=== PATIENT | male | born 1960 | race Two or more races ===

== ENCOUNTER 2025-03-30 19:10 | Inpatient (IN) | payer MEDICARE, MEDICAID, SELFPAY ==
[2025-03-30 19:57] VITALS: BP 230/111; BP 235/118; PULSE 74; RESP 18; TEMP 36.8; O2SAT 95; BMI 28.3
--- NOTE | 2025-03-30 20:01 | PD.EDABDPN ---
ED Abdominal Pain RME/HPI General Chief Complaint: Abdominal Pain Stated complaint: UPPER ABD PAIN Time seen by provider: 03/30/25 20:04 Arrival date/time: 03/30/25 19:10 RME / HPI RME / HPI narrative: See MDM for Dr. Valenzuela's HPI Documentation. Related Data Home Medications ?Medication ?Instructions ?Recorded ?Confirmed No Known Home Medications 03/31/25 03/31/25 Allergies Allergy/AdvReac Type Severity Reaction Status Date / Time No Known Allergies Allergy Verified 03/30/25 19:11 Review of Systems Review of Systems Systems Reviewed: All systems reviewed, normal except as documented Past Medical History Social History SMOKING STATUS: Never smoker ED Exam Narrative Physical exam: See MDM for Dr. Valenzuela's Physical Exam Documentation. Course Quality Measures none Orders Category Date Time Status Admit to Inpatient Status Routine Admission 03/30/25 22:14 Active Patient Condition Routine Admission 03/30/25 22:13 Ordered COVID-19 Screening Questionnaire NOW Care 03/30/25 21:46 Active Decision to Admit X1 Care 03/30/25 21:46 Completed EKG (ED ONLY) *Do not use* NOW Care 03/30/25 20:02 Completed NPO NOW Care 03/30/25 21:45 Active Notify provider NEEDED Care 03/30/25 22:13 Active Saline [Insert IV] NOW Care 03/30/25 20:01 Active Consult to General Surgery Stat Cons 03/30/25 21:37 Ordered Diet NPO (NOW) Diet 03/30/25 21:[address] chest abdomen pelvis wo Stat Exams 03/30/25 20:[address] head/brain wo con Stat Exams 03/30/25 20:03 Completed EKG (ED Only) Stat Exams 03/30/25 20:02 Draft US gall bladder Stat Exams 03/30/25 20:03 Completed XR chest 1V portable Stat Exams 03/30/25 20:02 Completed Alcohol, Blood Medical Stat Lab 03/30/25 20:38 Completed Amylase Stat Lab 03/30/25 20:38 Completed BNP [B-Type Natriuretic Peptide] Stat Lab 03/30/25 20:38 Completed Bilirubin,Direct Stat Lab 03/30/25 20:38 Completed Blood Culture (Lab) Stat Lab 03/30/25 20:38 Received CBC AM DRAW Lab 03/31/25 05:00 Ordered CBC AM DRAW Lab 04/01/25 05:00 Ordered CBC AM DRAW Lab 04/02/25 05:00 Ordered CBC Stat Lab 03/30/25 20:38 Completed CMP [Comprehensive Metabolic Panel] Stat Lab 03/30/25 20:38 Completed CRP [C-Reactive Protein] Stat Lab 03/30/25 20:38 Completed Comprehensive Metabolic Panel AM DRAW Lab 03/31/25 05:00 Ordered Comprehensive Metabolic Panel AM DRAW Lab 04/01/25 05:00 Ordered Comprehensive Metabolic Panel AM DRAW Lab 04/02/25 05:00 Ordered ESR [Sed Rate (ESR)] Stat Lab 03/30/25 20:38 Completed Hemoglobin A1C [Glycohemoglobin w (eAG)] Stat Lab 03/30/25 20:38 Completed Lactate (Lactic Acid) Stat Lab 03/30/25 20:38 Completed Lipase Stat Lab 03/30/25 20:38 Completed Lipid Panel AM DRAW Lab 03/31/25 05:00 Ordered Magnesium Stat Lab 03/30/25 20:38 Completed PT [Prothrombin Time with INR] Stat Lab 03/30/25 20:38 Completed PTT [Partial Thromboplastin Time] Stat Lab 03/30/25 20:38 Completed Procalcitonin Stat Lab 03/30/25 20:38 Completed TSH [Thyroid Stimulating Hormone] Stat Lab 03/30/25 20:38 Completed Troponin I Stat Lab 03/30/25 20:38 Completed UA, C/S IF [Urinalysis, C/S if Indicated] Stat Lab 03/30/25 20:44 Completed Acetaminophen Tab [Tylenol Tab] Med 03/30/25 22:13 Discontinued 650 mg PO Q6H PRN HYDROcodone*/APAP 5/325 [[place] 5/325] Med 03/30/25 22:13 Active 1 tab PO Q6HR PRN HYDROmorphone INJ [Dilaudid Inj] Med 03/30/25 20:02 Discontinued 1 mg IVP X1 ONE Heparin Inj Med 03/31/25 09:00 Discontinued 5,000 unit SC BID Labetalol* IV [Trandate* IV] Med 03/30/25 22:15 Discontinued 20 mg IVP Q10M Ondansetron Inj [Zofran Inj] Med 03/30/25 22:13 Active 4 mg IVP Q6H PRN Ondansetron Inj [Zofran Inj] Med 03/30/25 20:02 Discontinued 4 mg IVP X1 ONE Piper/Tazo 3.375 gm Premix [Zosyn] Med 03/30/25 21:37 Discontinued 3.375 gm in 50 ml IV X1 Piper/Tazo Inj [Zosyn Inj] 4.5 gm Med 03/30/25 22:17 Pending Sodium Chloride 0.9% (Pop) [NS 0.9% mini bag] 100 ml IV Q6HR Ringers Lactated 1000 ml [Lactated Ringers] 1,000 ml Med 03/30/25 22:15 Active IV 75 mls/hr Sodium Chloride 0.9% 1000 ml [Ns] 1,000 ml Med 03/30/25 20:02 Discontinued IV 999 mls/hr cloNIDine HCL [Catapres] Med 03/30/25 20:02 Discontinued 0.3 mg PO X1 ONE Code Status Routine Oth 03/30/25 22:13 Ordered Vital Signs Vital signs: Vital Signs Temperature 98.2 F 03/30/25 19:57 Pulse Rate 74 03/30/25 19:57 Respiratory Rate 18 03/30/25 19:57 Blood Pressure 230/111 H 03/30/25 19:57 Pulse Oximetry (%) 95 03/30/25 19:57 Oxygen Delivery Method Room Air 03/30/25 19:57 Abdominal Pain MDM MDM Narrative MDM Narrative:: This section includes all my notes and documentations, including HPI, PE, and ED course. Clovis Valenzuela MD HPI: 64 y/o male presents with severe epigastric abdominal pain and nausea for several days. No history of abdominal surgery. No medications. No other complaints. ROS: All negative except as documented in HPI. Physical Exam: General:? Alert and oriented.? Appears uncomfortable. High BP noted. Eyes:? Conjunctivae and lids clear.? EOMI.? PERRL. ENT:? No nasal congestion. Neck:? Supple.? Heart:? RRR. Lungs:? No respiratory distress.? Good air movement.? No rhonchi, wheezing, rales.? Abdomen:? Soft with upper quadrant tenderness.? Normal bowel sounds.? No distension.? No rebound or guarding.? Skin:? Warm and dry.? Neuro:? Alert and oriented X 3.? Cranial Nerves II-XII grossly intact.? No peripheral motor deficits. I reviewed all diagnostic test results: My interpretation of the EKG is: Sinus rhythm (77 bpm) with nonspecific ST-T changes. My interpretation of the chest x-ray is: NAD. My review of the Head/Brain CT report is: No acute findings. My review of the Chest/Abdomen/Pelvis CT report is cholecystitis My review of the Gall Bladder US report is cholecystitis. Blood tests and urine tests remarkable for WBC 13.4. At this point, diagnoses include: Acute cholecystitis Hypertensive urgency Treatment here included: IVF Zofran 4 mg IV Dilaudid 1 mg IV Oral clonidine 0.3 mg Some improvement noted. I discussed the case with our general surgeon, Dr. Verduzco. About the presentation and exam and diagnostics and treatments here. And need of further care in the hospital. Recommended admission to hospitalist for surgery. I discussed the case with our hospitalist. About the presentation and exam and diagnostics and treatments here. And need of further care in the hospital. Will accept the patient. Clovis Valenzuela MD Patient data External records reviewed:: [facility] previous records (No prior ED records available for review) Clinical information provided by:: patient Social determinants that could affect healthcare access:: none Patient has the following chronic illnesses:: None reported How is presenting disease/condition affected by chronic disease/condition?: no chronic disease Evaluation data The following diagnostics were reviewed and interpreted by me:: lab results, radiology exam(s) and EKG tracing(s) (My interpretation of the EKG is: Sinus rhythm (77 bpm) with nonspecific ST-T changes. Clovis Valenzuela MD) Lab and/or radiology exams considered but not ordered:: None Interpretation Summary: I reviewed all diagnostic test results: My interpretation of the EKG is: Sinus rhythm (77 bpm) with nonspecific ST-T changes. My interpretation of the chest x-ray is: NAD. My review of the Head/Brain CT report is: No acute findings. My review of the Chest/Abdomen/Pelvis CT report is cholecystitis My review of the Gall Bladder US report is cholecystitis. Blood tests and urine tests remarkable for WBC 13.4. Medications / Prescriptions Medications or Prescriptions considered but not ordered:: None Medication administrations:: Medication Administration History Acetaminophen (Acetaminophen 325 Mg Tablet) 650 mg PO Q6H PRN PRN Reason: PAIN (1-3) OR FEVER > 100.4 Stop: 04/29/25 22:12 Hydrocodone Bitart/Acetaminophen (Hydrocodone/Apap 5/325 Tablet) 1 tab PO Q6HR PRN PRN Reason: PAIN SCALE 4-6 (Moderate Stop: 04/04/25 22:12 Last Admin: 03/31/25 00:05 Dose: 1 tab Documented By: GD Heparin Sodium (Porcine) (Heparin Sod Inj 5000 Unit/Ml Vial) 5,000 unit SC BID COUNT INCLUDES THE [facility] Stop: 04/14/25 20:59 Lactated Ringer's (Lactated Ringers) 1,000 mls @ 75 mls/hr IV .[id number] JEREMIAH Stop: 04/29/25 22:14 Last Admin: 03/30/25 23:02 Dose: 75 mls/hr Documented By: BR Piperacillin Sod/Tazobactam (Sod 4.5 gm/ Sodium Chloride) 100 mls @ 200 mls/hr IV Q6HR JEREMIAH; Protocol Stop: 04/06/25 22:16 Labetalol HCl (Labetalol Inj 5 Mg/Ml Vial 4 Ml) 20 mg IVP Q10M PRN PRN Reason: SBP>180 or DBP>100and pulse>65 Stop: 04/29/25 22:35 Ondansetron HCl (Ondansetron Inj 2 Mg/Ml Inj 2 Ml) 4 mg IVP Q6H PRN; Protocol PRN Reason: NAUSEA OR VOMITING Stop: 04/29/25 22:12 Discontinued Medications Acetaminophen (Acetaminophen 325 Mg Tablet) 650 mg PO Q6H PRN PRN Reason: PAIN OR FEVER > 100.4 Stop: 04/29/25 22:12 Clonidine (Clonidine Hcl 0.1 Mg Tablet) 0.3 mg PO X1 ONE Stop: 03/30/25 20:03 Last Admin: 03/30/25 20:42 Dose: 0.3 mg Documented By: CVL Heparin Sodium (Porcine) (Heparin Sod Inj 5000 Unit/Ml Vial) 5,000 unit SC BID COUNT INCLUDES THE [facility] Stop: 04/14/25 08:59 Hydromorphone HCl (Hydromorphone Inj 2 Mg/Ml Vial) 1 mg IVP X1 ONE Stop: 03/30/25 20:03 Last Admin: 03/30/25 21:09 Dose: 1 mg Documented By: MISSY Sodium Chloride (Ns) 1,000 mls @ 999 mls/hr IV .Q1H1M ONE Stop: 03/30/25 21:02 Last Infusion: 03/30/25 22:48 Dose: Infused Documented By: Admin: 03/30/25 21:08 Dose: 999 mls/hr Documented By: MISSY Piperacillin/Tazobactam/Dextrose (Zosyn) 3.375 gm in 50 mls @ 100 mls/hr IV X1 ONE; Protocol Stop: 03/30/25 22:06 Last Infusion: 03/30/25 22:48 Dose: Infused Documented By: Admin: 03/30/25 21:46 Dose: 100 mls/hr Documented By: SCARLET Labetalol HCl (Labetalol Inj 5 Mg/Ml Vial 4 Ml) 20 mg IVP Q10M JEREMIAH Stop: 04/29/25 22:14 Ondansetron HCl (Ondansetron Inj 2 Mg/Ml Inj 2 Ml) 4 mg IVP X1 ONE; Protocol Stop: 03/30/25 20:03 Last Admin: 03/30/25 21:09 Dose: 4 mg Documented By: MISSY Treatment here from me included: IVF Zofran 4 mg IV Dilaudid 1 mg IV Oral clonidine 0.3 mg Consultations Consultation(s) initiated? (list below): Yes Consultation #1 (Physician, Specialty, Details): I discussed the case with our general surgeon, Dr. Verduzco. About the presentation and exam and diagnostics and treatments here. And need of further care in the hospital. Recommended admission to hospitalist for surgery. Time: 21:35 Consultation #2 (Physician, Specialty, Details): I discussed the case with our hospitalist. About the presentation and exam and diagnostics and treatments here. And need of further care in the hospital. Will accept the patient. Time: 21:40 Diagnosis Differential diagnosis abdominal pain: acute appendicitis, calculus of kidney, constipation, diverticulitis, endometriosis, gastroenteritis, pancreatitis, small bowel obstruction and other (Hypertensive urgency, biliary colic) Most likely diagnosis given after review of the tests above:: Acute cholecystitis Hypertensive urgency Admission Indicated Admission indicated?: indicated Explain why admission is indicated or not indicated:: Acute cholecystitis Hypertensive urgency Admission Request Was there a request for admission?: Yes Admission Attestation Admission request attestation: Discussed case with Hospitalist service regarding admission. Discussed patients ED course, exam findings, labs, and radiology results. Agreed to accept the patient for admission. Disposition Plan Disposition Plan: Admit Discharge Plan Plan Patient Disposition: Admit Acute Care w/in Hospital Problem List Clinical Impression: Acute cholecystitis, Hypertensive urgency
--- NOTE | 2025-03-30 20:02 | XR_ITS ---
EXAMINATION: PA chest single view TECHNIQUE: Upright PA chest single view Date and time: March 22, 2025, 2003 hours INDICATIONS: Shortness of breath weakness today. FINDINGS: Normal heart size Lungs are clear. Osseous rectors are intact IMPRESSION: No active disease
--- NOTE | 2025-03-30 20:02 | EKG_ITS ---
[facility] Test Date: 2025-03-30 Pat Name: HENRI GRIJALVA Department: Room: - Gender: Male Rn Pool: : [id number] Requested By: Clovis Scott Order Number: [id number] Reading MD: Clovis Scott Measurements Intervals [place] Rate: 77 P: 33 TX: 143 QRS: -9 QRSD: 86 T: 46 QT: 377 QTc: 428 Interpretive Statements SINUS RHYTHM MINIMAL VOLTAGE CRITERIA FOR LVH, CONSIDER NORMAL VARIANT [MEETS CRITERIA IN ONE OF: R(aVL), S(V1), R(V5), R(V5/V6)+S(V1)] No previous ECG available for comparison /store/S0/[id number]/ecg/[id number].pdf
--- NOTE | 2025-03-30 20:03 | XR_ITS ---
Examination: CT chest, without intravenous contrast. CT abdomen, without intravenous contrast. CT pelvis, without intravenous contrast. 2-D sagittal and coronal reconstructions. 3-D reconstructions. Date and time of exam: March 30, 2025, 2021 hours INDICATIONS: Epigastric pain nausea vomiting chest and abdominal pain today CTDI vol (mgy) 13.7 DLP (MGycm) 1057 Technique: Multiple CT images, 3.0 mm slice thickness, obtained chest, abdomen, pelvis, with the high-resolution 64 slice scanner.. Sagittal and coronal 2-D reconstructions are obtained. 3-D reconstructions Low dose protocols were performed. One or more of the following dose reduction techniques were used; automated exposure control, adjustment of the mA and/or KV according to patient size, use of iterative reconstruction technique. Findings: No thoracic aortic aneurysm dilatation Pulmonary artery segments are not enlarged. No mediastinal lymphadenopathy. No pneumonia or pulmonary edema or pleural disease No liver or splenic lesion Gallstones Gallbladder wall appears mildly thickened No pancreatic or adrenal mass Benign left renal cysts No renal or ureteral calculi, no hydronephrosis Aorta normal size No bowel obstruction Normal appendix Colonic diverticulosis, no diverticulitis Urinary bladder intact Moderate prostatomegaly Osseous structures intact IMPRESSION: No mediastinal lymphadenopathy, No pneumonia or pulmonary edema or pleural disease Recommend hepatobiliary sonography follow-up to exclude calculus cholecystitis No renal or ureteral calculi, no hydronephrosis Normal appendix No bowel obstruction diverticulitis or free air
--- NOTE | 2025-03-30 20:03 | XR_ITS ---
Examination: Abdomen sonogram, Limited Date and time of exam: March 30, 2025, 2025 hours INDICATIONS: Epigastric pain and vomiting beginning 3 weeks ago. Technique: Real-time diggs scale transabdominal sonographic images of the upper abdomen obtained. Findings: Minimal gallbladder sludge Multiple gallstones Gallbladder wall borderline thickened 0.4 cm Common bile duct enlarged 0.7 cm no stones Pancreas obscured by bowel gas Liver 13.8 cm fatty infiltration lobular contour no focal liver lesions Normal hepatopetal portal venous flow Patent IVC IMPRESSION: Cholelithiasis, suspicious for cholecystitis Enlarged common bile duct 0.7 cm Consider MRCP follow-up to exclude acute cholecystitis and exclude stones in the common bile duct
--- NOTE | 2025-03-30 20:03 | XR_ITS ---
Examination: CT brain head without contrast. 2-D sagittal coronal reconstructions Date and time of exam: March 30, 2025, 2020 hours INDICATIONS: High blood pressure headache dizziness today CTDI: vol (mGy): 49.6 DLP: (mGycm): 971 Technique: Multiple CT axial sections of the brain have been obtained, 5 mm slice thickness. Contrast has not been administered. 2-D sagittal, coronal reconstructions have been obtained Low dose protocols were performed. One or more of the following dose reduction techniques were used; automated exposure control, adjustment of the mA and/or KV according to patient size, use of iterative reconstruction technique. Findings: No significant ventricular enlargement. Intra-axial or extra-axial hemorrhage density is not seen. No mass effect or midline shift Basal cisterns are not remarkable. Fourth ventricle is midline. Cranial vault intact. Impression: Negative for acute hemorrhage, mass effect or midline shift Advise clinical correlation and follow-up accordingly
[2025-03-30 20:42] VITALS: BP 230/111; PULSE 74
[2025-03-30 20:49] LABS: Collection Type, Urine Clean Catch
[2025-03-30 20:51] LABS: Lactate (Lactic Acid) 1.4 mMol/L (0.4-2.0)
[2025-03-30 21:05] LABS: Sed Rate (ESR) 15 mm/hr (0-20)
[2025-03-30 21:07] VITALS: BP 227/109; PULSE 74; RESP 19; O2SAT 97
[2025-03-30 21:07] LABS: Glucose Estimated Average 114 mg/dL (80-131); Hemoglobin A1C 5.6 % Hgb (4.8-6.0)
[2025-03-30] MEDS: SODIUM CHLORIDE 0.9% 1000 ML 1,000 ML 999 ML IV (21:08)
[2025-03-30] MEDS: ONDANSETRON INJ 2 MG/ML INJ 2 ML 4 MG IVP (21:09)
[2025-03-30] MEDS: HYDROmorphone INJ 2 MG/ML VIAL 1 MG IVP (21:09)
[2025-03-30 21:12] LABS: INR 1.0 (0.9-1.3); Partial Thromboplastin Time 27.3 Seconds (22.0-36.0); Prothrombin Time 10.4 Seconds (9.0-12.2)
[2025-03-30 21:16] LABS: Bilirubin,Urine Negative (Negative); Blood,Urine 1+ (Negative); Clarity,Urine Clear (Clear/Hazy); Color,Urine Colorless (Lt Yel-Yel); Culture Indicated,Urine Not Indicated; Glucose, Urine Negative (Negative); Ketones,Urine Negative (Negative); Leukocyte Esterase,Urine Negative (Negative); Nitrite,Urine Negative (Negative); PH,Urine 7.5 (5.0-7.0); Protein,Urine Trace (Neg - Trace); RBC,Urine 12 /hpf (0-3); Specific Gravity,Urine 1.013 (1.001-1.035); Squamous Epithelial Cell,Urine < 1 /hpf (0-5); Urobilinogen,Urine Negative mg/dL (0.0-1.0); WBC,Urine 4 /hpf (0-5)
[2025-03-30 21:18] LABS: B-Type Natriuretic Peptide 20 pg/mL (0-100)
[2025-03-30 21:20] LABS: Basophils # (Auto) 0.1 Thou/mm3 (0.0-0.2); Basophils % (Auto) 0 % (0-2.5); Eosinophils # (Auto) 0.2 Thou/mm3 (0.0-0.5); Eosinophils % (Auto) 1 % (0-10); Hematocrit 42.3 % (41.0-53.0); Hemoglobin 14.5 g/dL (13.5-16.0); Immature Granulocytes Auto 0.05 Thou/mm3 (0.00-0.00); Lymphocytes # (Auto) 1.5 Thou/mm3 (1.0-4.8); Lymphocytes % (Auto) 11 % (10-50); Mean Corpuscular HGB Conc 34.3 g/dl (31.0-37.0); Mean Corpuscular Hemoglobin 30.0 pg (25.0-35.0); Mean Corpuscular Volume 87 fL (80-100); Monocytes # (Auto) 1.1 Thou/mm3 (0.0-0.8); Monocytes % (Auto) 8 % (0-12); Neutrophils # (Auto) 10.6 Thou/mm3 (1.8-7.7); Neutrophils % (Auto) 79 % (37-80); Nucleated Red Blood Cell # 0.00 Thou/mm3 (0.00-0.00); Nucleated Red Blood Cell % 0 /100 WBC (0); Platelet Count 188 Thou/mm3 (140-440); RDW Standard Deviation 38.3 fL (35.1-43.9); Red Blood Count 4.84 Miln/mm3 (4.50-5.90); White Blood Count 13.4 Thou/mm3 (3.8-10.6)
[2025-03-30 21:22] VITALS: BP 163/86; PULSE 72; RESP 18; TEMP 36.8; O2SAT 97
[2025-03-30 21:28] VITALS: BP 163/86; PULSE 66; RESP 14; O2SAT 96
[2025-03-30 21:30] LABS: Alanine Aminotransferase 15 U/L (10-49); Albumin, Serum 4.7 gm/dL (3.4-4.8); Albumin/Globulin Ratio 1.7 (1.2-2.2); Alcohol, Blood Medical < 3.0 mg/dL (0-10.0); Alkaline Phosphatase 98 U/L (46-116); Amylase 86 U/L (30-118); Anion Gap 11 (7-16); Aspartate Amino Transferase 20 U/L (0-34); BUN/Creatinine Ratio 9 Ratio (12-20); Bilirubin,Direct 0.2 mg/dL (0.0-0.3); Bilirubin,Total 0.5 mg/dL (0.3-1.2); Blood Urea Nitrogen 10 mg/dL (9-23); C-Reactive Protein 1.3 mg/dL (0.0-0.9); Calcium 9.5 mg/dL (8.3-10.6); Calcium (Corrected) 9.5 mg/dL (8.5-10.1); Carbon Dioxide 24.1 mMol/L (20.0-31.0); Chloride 106 mMol/L (98-107); Creatinine (Component) 1.1 mg/dL (0.6-1.3); Estimated Creatinine Clearance 61.2 mL/min (>60); Globulin 2.8 gm/dL (2.3-3.5); Glucose 143 mg/dL (74-106); Lipase 33 U/L (12-53); Magnesium 2.2 mg/dL (1.6-2.6); Osmolality,Calculated 282 (275-295); Potassium 3.8 mMol/L (3.4-5.1); Procalcitonin 0.08 ng/ml (0.0-0.49); Sodium 141 mMol/L (136-145); Thyroid Stimulating Hormone 0.97 uIU/mL (0.55-4.78); Total Protein 7.5 gm/dL (5.7-8.2); Troponin I < 0.002 ng/mL (0.0-0.045); eGFR > 60 See Note
[2025-03-30] MEDS: PIPER/TAZO 3.375 GM PREMIX 3.375 GM/50 ML BAG IV (21:46)
[2025-03-30 22:00] VITALS: BP 146/85
--- NOTE | 2025-03-30 22:20 | PD.RESHP ---
Documentation for date of: 03/30/25 [facility] History of Present Illness History of present illness: 64-year-old Belarusian-speaking male with no noted past medical history who presents to the ED for abdominal pain. Daughter present at bedside to help provide additional information. States that pain started on , was right-sided, and associated with nausea and non-bloody and non-bilious vomiting. No fever or chills. Per daughter, he has been experiencing abdominal pain after eating greasy meals for some time but did not seek medical attention until now. Since experiencing these episodes he has been trying to watch what he eats. Additionally, prior to coming in he was experiencing headaches and a nosebleed, but no blurry vision. He has no history of hypertension and does not take any medications for it. Does state that he is under stress as his is currently admitted and being worked up for a stroke. In the ED, blood pressure noted to be 230/111, afebrile, and on room air. Labs significant for mild leukocytosis 13.4 and T. bili and alk phos within normal limits. CT A/P showed gallstones and a mildly thickened gallbladder. Gallbladder ultrasound shows gallstones and suspicion for cholecystitis with CBD of 0.[address] head negative. General surgery consulted and plans to perform cholecystectomy following morning. Given clonidine 0.3 mg x 1, 1 L LR bolus, Zofran, hydromorphone 1 mg x 1, and Zosyn. Admitted for management of acute cholecystitis and hypertensive emergency. PMHx: None Medications: None SHx: Denies smoking, alcohol or illicit drug use PSHx: None Allergies: None Review of Systems Review of Systems Systems Reviewed: All systems reviewed, normal except as documented Exam Vital Signs Temp Pulse Resp BP Pulse Ox O2 Del Method 98.3 F 66 14 146/85 H 96 Room Air 03/30/25 21:22 03/30/25 21:28 03/30/25 21:28 03/30/25 22:00 03/30/25 21:03/30/25 21:28 Narrative Exam General: AOx3, no acute distress, able to speak full sentences HEENT: NC/AT, mucous membranes moist, bilateral sclera anicteric Cardiovascular: regular rate and rhythm, S1/S2 present, no murmurs appreciated Pulmonary: clear to auscultation bilaterally, no rales/rhonchi/wheezes Abdominal: mild tenderness to palpation, negative Skinner, soft, non-distended, no rebound/guarding, normal bowel sounds present Musculoskeletal: normal ROM, no peripheral edema Skin: warm and dry, intact, no rashes Neuro: CN II-XII intact, no focal deficits Results: Labs 03/31/25 05:53 03/31/25 05:53 Labs: Short CBC 03/30/25 Range/Units 20:38 WBC 13.4 H (3.8-10.6) Thou/mm3 Hgb 14.5 (13.5-16.0) g/dL Hct 42.3 (41.0-53.0) % Plt Count 188 (140-440) Thou/mm3 BMP 03/30/25 20:38 Sodium 141 Potassium 3.8 Chloride 106 Carbon Dioxide 24.1 BUN 10 Creatinine 1.1 Glucose 143 H Calcium 9.5 Cardiac Enzymes 03/30/25 Range/Units 20:38 Troponin I < 0.002 (0.0-0.045) ng/mL Liver Function 03/30/25 Range/Units 20:38 Total Bilirubin 0.5 (0.3-1.2) mg/dL Direct Bilirubin 0.2 (0.0-0.3) mg/dL AST 20 (0-34) U/L ALT 15 (10-49) U/L Alkaline Phosphatase 98 (46-116) U/L Albumin 4.7 (3.4-4.8) gm/dL Urine 03/30/25 Range/Units 20:44 Urine Color Colorless A (Lt Yel-Yel) Urine Clarity Clear (Clear/Hazy) Urine pH 7.5 H (5.0-7.0) Ur Specific [place] 1.013 (1.001-1.035) Urine Protein Trace (Neg - Trace) Urine Glucose (UA) Negative (Negative) Quality Measures Quality Measures VTE prophylaxis Advance care planning discussed with:: patient and child Medications Home Medications and Allergies Allergies Allergy/AdvReac Type Severity Reaction Status Date / Time No Known Allergies Allergy Verified 03/30/25 19:11 Visit Medications Acetaminophen (Acetaminophen 325 Mg Tablet) 650 mg PO Q6H PRN PRN Reason: PAIN OR FEVER > 100.4 Stop: 04/29/25 22:12 Hydrocodone Bitart/Acetaminophen (Hydrocodone/Apap 5/325 Tablet) 1 tab PO Q6HR PRN PRN Reason: PAIN SCALE 4-6 (Moderate Stop: 04/04/25 22:12 Lactated Ringer's (Lactated Ringers) 1,000 mls @ 75 mls/hr IV .[id number] JEREMIAH Stop: 04/29/25 22:14 Ondansetron HCl (Ondansetron Inj 2 Mg/Ml Inj 2 Ml) 4 mg IVP Q6H PRN; Protocol PRN Reason: NAUSEA OR VOMITING Stop: 04/29/25 22:12 Discontinued Medications Clonidine (Clonidine Hcl 0.1 Mg Tablet) 0.3 mg PO X1 ONE Stop: 03/30/25 20:03 Last Admin: 03/30/25 20:42 Dose: 0.3 mg Hydromorphone HCl (Hydromorphone Inj 2 Mg/Ml Vial) 1 mg IVP X1 ONE Stop: 03/30/25 20:03 Last Admin: 03/30/25 21:09 Dose: 1 mg Sodium Chloride (Ns) 1,000 mls @ 999 mls/hr IV .Q1H1M ONE Stop: 03/30/25 21:02 Last Admin: 03/30/25 21:08 Dose: 999 mls/hr Piperacillin/Tazobactam/Dextrose (Zosyn) 3.375 gm in 50 mls @ 100 mls/hr IV X1 ONE; Protocol Stop: 03/30/25 22:06 Last Admin: 03/30/25 21:46 Dose: 100 mls/hr Ondansetron HCl (Ondansetron Inj 2 Mg/Ml Inj 2 Ml) 4 mg IVP X1 ONE; Protocol Stop: 03/30/25 20:03 Last Admin: 03/30/25 21:09 Dose: 4 mg Assessment & Plan Plan 64-year-old Belarusian-speaking male with no noted past medical history who is admitted for management of acute cholecystitis and hypertensive emergency. #Acute cholecystitis Presents with acute onset abdominal pain x 1 day with associated nausea and nonbilious and nonbloody emesis. No fevers, slight leukocytosis of 13.4. T. bili and alk phos within normal limits. Gallbladder ultrasound shows cholelithiasis with slight gallbladder wall thickening and CBD of 0.7 cm but no stones seen. ? General Surgery on board, pending cholecystectomy ? N.p.o. ? LR at 75 cc/h ? Stephaniesytony (03/30-) #Hypertensive emergency No history of hypertension and not on any home medications. ? Labetalol as needed ? Recommend to reduce MAP gradually by 10-20% in first hour and 5-15% over next 23 hours ? Or target blood pressure of <180/<120 mmHg for first hour and <160/<110 mmHg for next 23 hours Hospital management: Disposition: Pending cholecystectomy, IV antibiotics Fluids: LR at 75 cc/h Diet: N.p.o. except for medications Lines: PIV DVT prophylaxis: Heparin SC BID CODE STATUS: full code ----- Plan discussed with attending physician Dr. Octavio Red MD PGY-2 Internal Medicine Attending Provider Attestation/Addendum After examination of the patient and review of the clinical data I feel that this patient needs admission to the hospital for further treatment/evaluation. Plan of care discussed with patient and is in agreement. I Ankita Cunningham MD, attest that I was physically present for pearce portions of evaluation, and examined patient, labs and imagings and plan of care were discussed with IM residents team, and I agree with the findings and plans documented above.
[2025-03-30] MEDS: RINGERS LACTATED 1000 ML 1,000 ML 75 ML IV (23:02)
[2025-03-30 23:51] VITALS: BMI 28.3
[2025-03-31] VITALS (8 sets, daily range): BP systolic 118–161; BP diastolic 71–94; PULSE 62–101; RESP 13–18; TEMP 36.2–36.8; O2SAT 95–98
[2025-03-31] MEDS: HYDROcodone/APAP 5/325 TABLET 1 TAB PO ×2 (00:05→10:22)
[2025-03-31 06:40] LABS: Basophils # (Auto) 0.0 Thou/mm3 (0.0-0.2); Basophils % (Auto) 0 % (0-2.5); Eosinophils # (Auto) 0.1 Thou/mm3 (0.0-0.5); Eosinophils % (Auto) 1 % (0-10); Hematocrit 37.3 % (41.0-53.0); Hemoglobin 12.8 g/dL (13.5-16.0); Immature Granulocytes Auto 0.03 Thou/mm3 (0.00-0.00); Lymphocytes # (Auto) 1.4 Thou/mm3 (1.0-4.8); Lymphocytes % (Auto) 15 % (10-50); Mean Corpuscular HGB Conc 34.3 g/dl (31.0-37.0); Mean Corpuscular Hemoglobin 30.0 pg (25.0-35.0); Mean Corpuscular Volume 88 fL (80-100); Monocytes # (Auto) 1.1 Thou/mm3 (0.0-0.8); Monocytes % (Auto) 12 % (0-12); Neutrophils # (Auto) 6.5 Thou/mm3 (1.8-7.7); Neutrophils % (Auto) 71 % (37-80); Nucleated Red Blood Cell # 0.00 Thou/mm3 (0.00-0.00); Nucleated Red Blood Cell % 0 /100 WBC (0); Platelet Count 160 Thou/mm3 (140-440); RDW Standard Deviation 38.1 fL (35.1-43.9); Red Blood Count 4.26 Miln/mm3 (4.50-5.90); White Blood Count 9.2 Thou/mm3 (3.8-10.6)
[2025-03-31 06:56] LABS: Alanine Aminotransferase 135 U/L (10-49); Albumin, Serum 4.1 gm/dL (3.4-4.8); Albumin/Globulin Ratio 1.7 (1.2-2.2); Alkaline Phosphatase 111 U/L (46-116); Anion Gap 9 (7-16); Aspartate Amino Transferase 161 U/L (0-34); BUN/Creatinine Ratio 10 Ratio (12-20); Bilirubin,Total 0.9 mg/dL (0.3-1.2); Blood Urea Nitrogen 10 mg/dL (9-23); Calcium 8.4 mg/dL (8.3-10.6); Calcium (Corrected) 8.4 mg/dL (8.5-10.1); Carbon Dioxide 26.9 mMol/L (20.0-31.0); Cardiac Risk Estimate 3.2 RATIO (4.0-6.7); Chloride 105 mMol/L (98-107); Cholesterol 120 mg/dL (132-200); Creatinine (Component) 1.0 mg/dL (0.6-1.3); Estimated Creatinine Clearance 67.3 mL/min (>60); Globulin 2.4 gm/dL (2.3-3.5); Glucose 125 mg/dL (74-106); HDL Cholesterol 37 mg/dL (40-60); LDL Cholesterol,Calculated 57 mg/dL (0-130); Osmolality,Calculated 281 (275-295); Potassium 3.8 mMol/L (3.4-5.1); Sodium 141 mMol/L (136-145); Total Protein 6.5 gm/dL (5.7-8.2); Triglycerides 129 mg/dL (30-150); eGFR > 60 See Note
--- NOTE | 2025-03-31 07:41 | PD.RESPRO ---
Documentation for date of: 03/31/25 Exam Vital Signs Temp Pulse Resp BP Pulse Ox O2 Del Method 97.1 F 67 18 143/78 H 98 Room Air 03/31/25 04:00 03/31/25 04:00 03/31/25 04:00 03/31/25 04:00 03/31/25 04:00 03/31/25 04:00 Objective Labs 03/31/25 05:53 03/31/25 05:53 Labs: Laboratory Results - last 24 hr 03/30/25 03/30/25 03/31/25 20:38 20:44 05:53 WBC 13.4 H 9.2 RBC 4.84 4.26 L Hgb 14.5 12.8 L Hct 42.3 37.3 L MCV 87 88 MCH 30.0 30.0 MCHC 34.3 34.3 RDW Std Deviation 38.3 38.1 Plt Count 188 160 Neut % (Auto) 79 71 Lymph % (Auto) 11 15 Hayes % (Auto) 8 12 Eos % (Auto) 1 1 Baso % (Auto) 0 0 Neut # (Auto) 10.6 H 6.5 Lymph # (Auto) 1.5 1.4 Hayes # (Auto) 1.1 H 1.1 H Eos # (Auto) 0.2 0.1 Baso # (Auto) 0.1 0.0 Immature Gran # (Auto) 0.05 H 0.03 H Absolute Nucleated RBC 0.00 0.00 Immature Gran % 0 0 Nucleated RBC % 0 0 ESR 15 PT 10.4 INR 1.0 APTT 27.3 Sodium 141 141 Potassium 3.8 3.8 Chloride 106 105 Carbon Dioxide 24.1 26.9 Anion Gap 11 9 BUN 10 10 Creatinine 1.1 1.0 Estim Creat Clear Calc 61.2 67.3 eGFR > 60 > 60 BUN/Creatinine Ratio 9 L 10 L Glucose [address] Glu mg/dL 114 Hemoglobin A1c 5.6 Calculated Osmolality 282 281 Lactic Acid 1.4 Calcium 9.5 8.4 Corrected Calcium 9.5 8.4 L Magnesium 2.2 Total Bilirubin 0.5 0.9 Direct Bilirubin 0.2 AST 20 161 H ALT 15 135 H Alkaline Phosphatase 98 111 Troponin I < 0.002 C-Reactive Prot, Quant 1.3 H B-Natriuretic Peptide 20 Total Protein 7.5 6.5 Albumin 4.7 4.1 D Globulin 2.8 2.4 Albumin/Globulin Ratio 1.7 1.7 Triglycerides 129 Cholesterol 120 L LDL Cholesterol, Calc 57 HDL Cholesterol 37 L Cholesterol/HDL Ratio 3.2 L Amylase 86 Lipase 33 Procalcitonin 0.08 TSH 0.97 Ur Collection Type Clean Catch Urine Color Colorless A Urine Clarity Clear Urine pH 7.5 H Ur Specific [place] 1.013 Urine Protein Trace Urine Glucose (UA) Negative Urine Ketones Negative Urine Blood 1+ A Urine Nitrite Negative Urine Bilirubin Negative Urine Urobilinogen (Auto) Negative Ur Leukocyte Esterase Negative Urine RBC 12 H Urine WBC 4 Ur Squamous Epith Cells < 1 Urine Bacteria None Ur Culture Indicated? Not Indicated Ethyl Alcohol < 3.0 Quality Measures Quality Measures none Assessment & Plan Assessment Current Active Medications: Generic Name Dose Route Start Last Admin Trade Name Freq PRN Reason Stop Dose Admin Acetaminophen 650 mg 03/30/25 23:06 Acetaminophen 325 Mg Tablet PO 04/29/25 22:12 Q6H PRN PAIN (1-3) OR FEVER > 100.4 Hydrocodone Bitart/Acetaminophen 1 tab 03/30/25 22:13 03/31/25 00:05 Hydrocodone/Apap 5/325 Tablet PO 04/04/25 22:12 1 tab Q6HR PRN Administration PAIN SCALE 4-6 (Moderate Heparin Sodium (Porcine) 5,000 unit 03/31/25 21:00 Heparin Sod Inj 5000 Unit/Ml Vial SC 04/14/25 20:59 BID JEREMIAH Lactated Ringer's 1,000 mls @ 75 mls/hr 03/30/25 22:15 03/30/25 23:02 Lactated Ringers IV 04/29/25 22:14 75 mls/hr .[id number] JEREMIAH Administration Piperacillin Sod/Tazobactam 100 mls @ 200 mls/hr 03/31/25 06:15 Sod 4.5 gm/ Sodium Chloride IV 04/06/25 22:16 Q6HR JEREMIAH Protocol Potassium Chloride 10 meq in 100 mls @ 100 mls/hr 03/31/25 07:40 Kcl Ivpb IV 03/31/25 09:39 Q1H JEREMIAH Labetalol HCl 20 mg 03/30/25 22:33 Labetalol Inj 5 Mg/Ml Vial 4 Ml IVP 04/29/25 22:35 Q10M PRN SBP>180 or DBP>100and pulse>65 Ondansetron HCl 4 mg 03/30/25 22:13 Ondansetron Inj 2 Mg/Ml Inj 2 Ml IVP 04/29/25 22:12 Q6H PRN NAUSEA OR VOMITING Protocol
[2025-03-31] MEDS: CEFOXITIN IV ×2 (08:05→11:28)
[2025-03-31] MEDS: SODIUM CHLORIDE 0.9% IV ×2 (08:05→11:28)
[2025-03-31] MEDS: POTASSIUM CHL 10 mEq IVPB 10 MEQ/100 ML BAG 100 MEQ IV ×2 (10:22→11:27)
--- NOTE | 2025-03-31 10:28 | PD.SURCONS ---
HPI Consult details History of present illness: 64M presenting with abdominal pain and nausea. Patient reports he has had similar episodes of pain in the past related to cholelithiasis and had been referred for elective surgery, however last night after eating a sandwich he noted severe epigastric pain which persisted prompting him to visit ER. The pain did sergei for some time but as of this morning he feels that it is returned and he does have nausea. He denies any fever or diarrhea PMH: Denies but has had hypertension since admission PSH: None Meds: None Allergies: NKDA Social history: Non-smoker, no alcohol use Review of Systems Review of Systems ROS Unobtainable: All systems reviewed & no additional complaints except as documented Meds Home Medications and Allergies Home Medications ?Medication ?Instructions ?Recorded ?Confirmed ?Type No Known Home Medications 03/31/25 03/31/25 History Allergies Allergy/AdvReac Type Severity Reaction Status Date / Time No Known Allergies Allergy Verified 03/30/25 19:11 Exam Vital Signs Temp Pulse Resp BP Pulse Ox O2 Del Method 97.6 F 62 18 149/83 H 98 Room Air 03/31/25 08:00 03/31/25 08:00 03/31/25 08:00 03/31/25 08:00 03/31/25 08:00 03/31/25 08:00 Constitutional Constitutional: no acute distress Routine Respiratory Exam Respiratory: Present no resp distress Routine Abdominal Exam Abdominal: Present soft and tenderness (mild epigastric tenderness); Absent distended, rebound or guarding Results Results: Laboratory Laboratory results: results reviewed Results: Imaging CT scan - abdomen: report reviewed US - abdomen: report reviewed Assessment & Plan Plan 64M with no known PMH presenting with signs and symptoms of acute cholecystitis. I explained benefits/risks of surgery including need for conversion to open, bleeding, infection, injury to nearby structures requiring further procedures or major biliary reconstruction at another hospital, as well as postoperative hernia and diarrhea. All questions were answered and patient is agreeable to proceeding OR today for laparoscopic cholecystectomy, possible open
--- NOTE | 2025-03-31 10:39 | EKG_ITS ---
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
[2025-03-31] MEDS: RINGERS LACTATED 1000 ML 1,000 ML 75 ML IV (11:26)
--- NOTE | 2025-03-31 13:40 | PC.SS ---
Annika Lopez is a 64 year-old male admitted to [place] for Acute Brittney. SS conducted bedside contact with the patient to complete initial assessment and to discuss discharge planning. Role and reason explained. Patient confirmed demographic information. Patient identifies his Queenie Cohen [phone] as his surrogate decision maker. Pt states he is able to complete all ADL?s independent. Pt does not possesses any DME. Pts PCP is Sabrina. Pharmacy of choice is [facility]. Discharge options discussed and the pt wishes to return home.? Pt will provide transport. 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 DC Plan: Home Contact: Queenie Address: Confirmed on face sheet PCP: Sabrina
--- NOTE | 2025-03-31 16:09 | ESOP_ITS ---
Date of Procedure 03/31/25 Pre Op Diagnosis Acute cholecystitis Post Op Diagnosis Same Procedure Laparoscopic cholecystectomy Findings Significantly inflamed gallbladder with thick rind and numerous stones Procedure Description After discussion of risks and benefits, patient was brought to the operating room, SCDs were placed and general anesthesia was induced. He had already received preoperative antibiotics and was prepped and draped in the usual sterile fashion. After timeout a supraumbilical incision was made with a #15 blade and the skin was elevated with towel clamps. A Veress needle was placed through the incision and proper positioning was confirmed with a drop test at which point the abdomen was insufflated to 15 mmHg. The Veress needle was then exchanged for a 5 mm camera using a Visiport technique. There were no signs of injury from the point of entry. 3 additional ports were placed under direct vision, one 12 mm at the epigastrium, one 5 mm right subcostal and one 5 mm right anterior axillary line. Patient was placed in reverse Trendelenburg. The gallbladder was noted to be very tense and edematous so it was first aspirated with return of approximately 30 cc of dark bile. It was still fairly difficult to grasp but the fundus was grasped and retracted cephalad and the infundibulum was grasped and retracted laterally. The lower third of the gallbladder was removed from the gallbladder bed using electrocautery and using blunt dissection, the hepatocystic triangle was cleared of all fat and fibrous tissue. During this process there was some bleeding from an accessory artery overlying the thick rind that was covering the gallbladder, this artery was clipped and transected in the usual fashion. Continuing with blunt dissection, the critical view was achieved showing 2 and only 2 structures entering the gallbladder. The gallbladder neck was significantly dilated so this was transected with a 35 mm stapler. The cystic artery was clipped and transected in the usual fashion. The gallbladder was removed from the gallbladder bed using electrocautery. Hemostasis of the gallbladder bed was achieved with electrocautery and reinforced with Surgicel powder. The specimen was removed in an Endo Catch bag via the epigastric port and the epigastric fascia was closed with 0 Vicryl suture using a Abel-Enma. Counts were confirmed correct and ports were removed under direct vision while pneumoperitoneum was released. Incisions were irrigated and infiltrated with half percent Marcaine for a total of 30 cc. Incisions were closed with 4-0 Monocryl and reinforced with Dermabond. Patient was extubated and brought to PACU in stable condition Pathology / specimen Other (Gallbladder) Estimated Blood Loss 50 Surgeon Marija Verduzco MD Surgical Staff Operation Date: 03/31/25 12:00 Case Staff PHYSICAL EDUCATION SPECIALIST: Rose Carmona RN First Assistant: Vishal Zapata
--- NOTE | 2025-03-31 16:11 | SUR.PHASEI ---
Pt. arrived to recovery via gurney, eyes closed, responds to verbal commands, VSS, no c/o pain or nausea at this time, lung sounds clear with rhonchi noted on inspiration, pt. receiving 6 liters 02 via oxymask, equal expansion trace., lap sites x4 CDI, dermabond intact, no active bleeding or redness noted, report received from Rose BOWSER and Yousuf GRIGSBY.
--- NOTE | 2025-03-31 16:22 | ESDS_ITS ---
Planned Discharge Date 03/31/25 DS: Providers Provider Date of admission: 03/30/25 22:14 Primary care physician: YONATAN Reynolds Admitting Provider: Ankita Cunningham MD Attending Provider on Admission: Ankita Cunningham MD Consults: 03/30/25 21:37 Consult to General Surgery Stat Comment: Cholecystitis Consulting Provider: Marija Verduzco Attending Provider on DC: Miguel Villalpando MD Discharging Provider: Danny Sears DO DS: Diagnosis Discharge Diagnosis (1) Acute cholecystitis: Status: Acute Problem List Completed Was Problem List Reviewed/Reconciled?: Yes Hospital Course Hospital Course Hospital course: Hospital Course: 64-year-old Belarusian-speaking male with no noted past medical history who presents to the ED for abdominal pain. Daughter was present at bedside to help provide additional information. States that pain started on , was right-sided, and associated with nausea and non-bloody and non-bilious vomiting. No fever or chills. Per daughter, he had been experiencing abdominal pain after eating greasy meals for some time but did not seek medical attention until now. Since experiencing these episodes he had been trying to watch what he eats. Additionally, prior to coming in he was experiencing headaches and a nosebleed, but no blurry vision. He has no history of hypertension and does not take any medications for it. Did state that he is under stress as his is currently admitted and being worked up for a stroke. Gallbladder ultrasound shows gallstones and suspicion for cholecystitis with CBD of 0.[address] head negative. General surgery consulted and the patient was admitted for management of acute cholecystitis and hypertensive emergency. The patient presented with a BP of 230/111 and was treated with a one-time dose of clonidine. His blood pressure improved. The patient underwent successful laparoscopic cholecystectomy on 03/31/2025. The patient tolerated the procedure well and he is stable for discharge. Problem List: #Acute cholecystitis #Hypertensive emergency Discharge Instructions: * You may resume showering in 2 days, on Monday 04/02. At that time it is okay to get incisions wet, pat dry after * Avoid bathing or swimming for 2 weeks * During the surgery we fill your abdomen with air in order to see the structures. Some of this air tends to linger and cause pain that is referred to the shoulder as well as pain with deep breaths. This will get better with time. Being out of bed and walking helps the air to absorb faster * If you develop worsening pain, nausea/vomiting, fever or signs of jaundice please seek care in ER * Continue taking all other home medications as prescribed * Follow-up with PCP within 1-2 weeks of discharge * If you do not have a PCP, then you can follow-up at the [facility] * Return to the emergency room if symptoms worsen The patient was seen and discussed with my attending physician Dr. Irasema CARRANZA and my senior resident Dr. Jamil CARRANZA PGY-2. Danny Sears DO PGY-1 Time Spent with Patient Time attestation: Total time spent providing and/or coordinating discharge services: 34 minutes Time spent: Greater than 30 minutes Exam Vital Signs Temp Pulse Resp BP Pulse Ox O2 Del Method O2 Flow Rate 97.2 F 98 13 160/77 H 96 Room Air 6 03/31/25 16:11 03/31/25 16:11 03/31/25 16:11 03/31/25 16:11 03/31/25 16:11 03/31/25 08:00 03/31/25 16:11 Narrative Exam General: Awake and in no acute distress. Conversational and non-toxic appearing. Neurologic: GCS 15. Alert and oriented x3, no gross neurological deficit, and patient able to move all 4 extremities. HEENT: Normocephalic, atraumatic, mucous membranes moist. Pupils reactive to light. Heart: Regular rate and rhythm, normal S1 and S2, no murmurs. Lungs: Clear to auscultation bilaterally with no wheezing or crackles. Abdomen: Diffuse abdominal pain on palpation. Nondistended. Extremities: No edema. 2+ radial and dorsalis pedis pulses bilaterally. Skin: Warm. Dry. No rash or ecchymoses. Discharge Plan Plan Patient Disposition: HOME (Self Care) Patient condition on transfer: Stable Care Plan Goals: * You may resume showering in 2 days, on Monday 04/02. At that time it is okay to get incisions wet, pat dry after * Avoid bathing or swimming for 2 weeks * During the surgery we fill your abdomen with air in order to see the structures. Some of this air tends to linger and cause pain that is referred to the shoulder as well as pain with deep breaths. This will get better with time. Being out of bed and walking helps the air to absorb faster * If you develop worsening pain, nausea/vomiting, fever or signs of jaundice please seek care in ER * Continue taking all other home medications as prescribed * Follow-up with PCP within 1-2 weeks of discharge * If you do not have a PCP, then you can follow-up at the [facility] * Return to the emergency room if symptoms worsen Prescriptions/Referrals Prescriptions/Med Rec: New oxycodone-acetaminophen [Percocet] 5-325 mg tablet 1 tab PO Q4H MDD 6 tabs PRN (Reason: pain) Qty: 10 0RF Rx Instructions: Take 1 tablet as needed every 4-6 hours for moderate to severe pain Referrals: Justin Bennett FNP [Primary Care Provider] Marija Verduzco MD [Physician, General Surgery] Patient/Caregiver Discharge Instructions Other Discharge Diet Instructions: You may resume showering in 2 days, on Monday 04/02 At that time it is okay to get incisions wet, pat dry after Avoid bathing or swimming for 2 weeks During the surgery we fill your abdomen with air in order to see the structures. Some of this air tends to linger and cause pain that is referred to the shoulder as well as pain with deep breaths. This will get better with time. Being out of bed and walking helps the air to absorb faster If you develop worsening pain, nausea/vomiting, fever or signs of jaundice please seek care in ER Education Materials: After Gallbladder Surgery, Preventing Surgical Site Infections Print Language: [place] Citizen Stand Alone Forms: Joyce Award Info., Patient Portal Info Letter Discharge Order Discharge Orders: Discharge (Routine); Ordered 03/31/25 Ordered By: Suzy Negron Quality Discharge Quality Measures none MD Attestestation MD Attestation I have seen and examined the patient. I was physically present for the pearce portions of the services provided including history, physical exam, diagnosis, treatment plans and orders. I agree with assessment and plan of care as documented by residents. Even though this this note was carefully revised there may still be minor errors in j2ee consultant due to voice recognition software. Miguel Villalpando MD
--- NOTE | 2025-03-31 16:55 | SUR.PHASEI ---
Pt. transferred to room 355 via gurney by staff, VSS, n/o pain or nausea at this time, IV saline locked, lap sites x4 to abd. Jessica MOY RN assumed care of pt.
== END 2025-03-31 18:00 | disposition home or self-care (01) | DRG 418 ==
LOC: SERX 22:24 → SERHOLD 22:35 → S3NX 23:41
PROVIDERS: Surgery; Admitting Provider Student in an Organized Health Care Education/Training Program; Emergency Provider Emergency Medicine; PCP Nurse Practitioner Family; Visit Provider Student in an Organized Health Care Education/Training Program
PROC: 0FT44ZZ Resection of Gallbladder, Percutaneous Endoscopic Approach (ICD-10-PCS; CPT 47562; principal; 2025-03-31 12:00)
DX: K80.00 Calculus of gallbladder with acute cholecystitis without obstruction (principal); I16.1 Hypertensive emergency
CPT/HCPCS: 36415; 70450; 71045; 71250; 74176; 76705; 80053; 80061; 80320; 81001; 82150; 82248; 83036; 83605; 83690; 83735; 83880; 84132; 84145; 84443; 84484; 85025; 85610; 85652; 85730; 86140; 87040; 93005; A4217; A4649; J0131; J0360; J0694; J1100; J1171; J2405; J2543; J2704; J3010; J3480; J3490; J7030; J7120; A9270; G0480; J1805

== ENCOUNTER 2025-04-16 10:49 | Outpatient (AMB) | payer MEDICARE, MEDICAID, SELFPAY ==
--- NOTE | 2025-04-16 11:19 | GSCOFFNT_ITS ---
Vital Signs - [facility] 04/16/25 11:20 Height 1.63 m Height Method Measured Weight 71.923 kg Weight Measurement Method Standing Scale BMI 27.1 BP 150/71 H Blood Pressure Source Automatic Cuff Blood Pressure Location Left Upper Arm Position Sitting Respiration 16 Pulse 70 Pulse Source Monitor Temp 97.5 F Temp Source Temporal Artery Scan Pulse Oximetry (%) 98 Oxygen Delivery Method Room Air Med/Allergies Allergies & Medications Allergies No Known Allergies Allergy (Verified 04/16/25 11:24) Medication Reconciliation oxycodone-acetaminophen 5 mg-325 mg tablet (Percocet) 1 tab PO Q4H PRN pain #10 tabs 03/31/25 [Rx Confirmed 04/16/25] MA Intake Visit Data Collection New Patient or Established: Established Patient (seen at [facility] within 3 years) Seen by Clinical Staff ONLY (RN/MA): No Reason for Visit:: 2 WEEK POST OP CHOLECYSTECTOMY Pain Present Currently: No Pain Scale Used: Rowland-Bowers/Numerical Overlock Collar Setter Required: Yes PCP or OBGYN visit in last 3 months: Yes Hx Now: No Do You Feel Safe at Home: Yes Authorities Contacted: N/A Smoking Status Smoking Status: Former smoker Immunization / Flu Flu Vaccine in the Last 12 Months: Yes Flu Vaccine Exclusion Criteria: Already Received Past Medical History Past Medical History NEUROLOGIC: Negative Seizures CARDIAC: Negative Congestive Heart Failure RESPIRATORY: Negative Chronic Obstructive Pulmonary Disease (COPD) GENITOURINARY: Negative Renal Disease ENDOCRINE: Negative Diabetes Mellitus Type 1 or Diabetes Mellitus Type 2 OTHER HISTORY: Negative Blood Transfusions, Blood Transfusion Reaction or Anesthesia Reactions Social History SMOKING STATUS: Smoking status: Former smoker ALCOHOL: Alcohol Intake: Never HOUSING: Housing: House LIVES WITH: Lives With: Family HPI HPI Narrative 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 Patient reports ports feeling very well overall, he said he has no pain since surgery, no nausea, no fever or diarrhea. He is eating well and having regular bladder and bowel function with no complaints ROS Review of Systems Systems Reviewed: All systems reviewed, normal except as documented Objective/Exam General General Appearance: alert, cooperative and well groomed Resp Respiratory exam: Absent respiratory distress Abdominal Abdominal exam: Present soft and incision (C/D/I, no erythema, no fluctuance or tenderness); Absent distention or tenderness Results Pathology of gallbladder reviewed Assessment & Plan Diagnosis / Problem List (1) Acute cholecystitis: Status: Acute Assessment & Plan: 64M s/p laparoscopic cholecystectomy 03/31/2025 for acute cholecystitis, recovering very well overall. Advised patient to avoid strenuous activity including lifting objects or in 10 pounds for 6 weeks postop. All questions were answered and he is encouraged to reach out as needed Advanced Care Planning Advance care planning discussed with:: other Office Procedures GNS Level of Care Nursing/Assessment Patient Status: Established Patient Nursing Assessment/Reassesment: Medication Reconciliation, Update PMH in EMR and Vital Signs Coordination of Care: Complex Care and Chronic Disease 1-5, Education Complex Pt/Fam, Consent,records obtained, informed consent, Results/Orders obtained and Staff clarify orders Special Needs: Language special needs Established Patient Charge Established Patient Point Assignment: 95 Established Patient Point Charge: EP Level 3 (80-115) Patient Portal Questionaires Social History Living Situation History Housing: House Tobacco History Smoking Status: Former smoker Alcohol History Alcohol Intake: Never Domestic Abuse History Do You Feel Safe at Home: Yes Review of Systems Report any current symptoms Only answer those that you have currently: Past Medical History Past Medical History Have you ever been diagnosed with any of the following: Neurological Problems Seizures: No Cardiology Problems Congestive Heart Failure: No Respiratory Problems Chronic Obstructive Pulmonary Disease (COPD): No Genital/Urinary Problems Renal Disease: No Endocrine Problems Diabetes Mellitus Type 1: No Diabetes Mellitus Type 2: No Other Problems Blood Transfusions: No Blood Transfusion Reaction: No Anesthesia Reactions: No
[2025-04-16 11:20] VITALS: BP 150/71; PULSE 70; RESP 16; TEMP 36.4; O2SAT 98; BMI 27.1
== END 2025-04-16 11:28 | disposition home or self-care (01) ==
PROVIDERS: PCP Nurse Practitioner Family; Referring Provider Nurse Practitioner Family; Supervising Provider Surgery; Visit Provider Surgery
DX: K81.0 Acute cholecystitis (principal)
CPT/HCPCS: 99213; G0463